=== PATIENT | female | born 1985 | race Caucasian/White ===

== ENCOUNTER 2017-06-26 18:42 | Emergency (ER) | payer OTHER, SELFPAY ==
[2017-06-26 18:43] VITALS: BP 137/67; PULSE 84; RESP 16; TEMP 36.8; O2SAT 98; BMI 25.5
--- NOTE | 2017-06-26 19:30 | ED.DCSUM_ITS ---
- ER Visit Summary Date of Service: 06/26/17 Chief Complaint: [Redness and swelling to left elbow] History of Present Illness: The patient is a 31 F [presents the emergency department with redness and swelling to her left elbow that started yesterday. Patient was seen at the urgent care today and started on Bactrim 2 tablets twice a day. Patient apparently received a phone call asking her to come to the emergency department to make sure that she was not septic. Patient denies any fevers. Patient denies any trauma to the elbow although she states she had been painting several days ago.] Physical Examination: [Left elbow-patient has some tenderness over the olecranon bursa with some mild fluctuance noted. There is an area of erythema that has been outlined with permanent marker from her visit to the urgent care in the ER erythema does not extend beyond the line of demarcation. Patient nervously intact distally. Patient has relatively painless range of motion in flexion extension at the elbow. I do not feel the patient has a septic joint. She is nervously intact distally.] Test Results: None indicated [] Emergency Department Course and Treatment: [I will add Keflex to her antibiotic regimen and first dose was given in the emergency department.] Treatment Plan: [We will start patient on Keflex and advised to continue with the Bactrim] Disposition: Discharged to home in stable condition. Patient tries to return if worsening pain, redness, swelling, or condition should worsen in any way. [] Impression: [Olecranon bursitis with cellulitis] This note was generated with [employer] dictation software. It may contain incorrect words, spelling, and punctuation that were not noted in review of the chart prior to signing ED Disposition - Plan for ED Patient: Chief Complaint: Upper Extremity Injury Referrals: Care Physician,No Primary [Primary Care Provider] -
--- NOTE | 2017-06-26 19:31 | ED.DEP ---
ED Disposition - Plan for ED Patient: Chief Complaint: Upper Extremity Injury Instructions: ED Bursitis Elbow Olecranon Prescriptions: Cephalexin [Keflex] 500 mg PO Q6 #40 cap Referrals: Care Physician,No Primary [Primary Care Provider] - Baldemar Jackson DO [STAFF PHYSICIAN] - 3-5 Days
[2017-06-26] MEDS: Cephalexin 250 MG Capsule 500 MG PO (20:00)
[2017-06-26 20:04] VITALS: PULSE 87; RESP 14; O2SAT 95
== END 2017-06-26 20:05 | disposition home or self-care (01) ==
LOC: ED 19:43
PROVIDERS: Emergency Provider Emergency Medicine
DX: M70.22 Olecranon bursitis, left elbow (principal); L03.114 Cellulitis of left upper limb; Z72.0 Tobacco use
CPT/HCPCS: 99283

== ENCOUNTER 2017-12-08 11:19 | Emergency (ER) | payer OTHER, SELFPAY ==
[2017-12-08 11:20] VITALS: BP 119/81; PULSE 74; RESP 14; TEMP 37; O2SAT 98; BMI 25.2
--- NOTE | 2017-12-08 11:35 | ED.VISSUMM ---
- ER Visit Summary Date of Service: 12/08/17 Chief Complaint: Foot laceration History of Present Illness: The patient is a 32 F who was walking to the garage when she kicked a saw. She caused laceration to the dorsum of the left foot between the third and fourth toe. Tetanus is not up-to-date. Physical Examination: There is a 1.5 cm full-thickness laceration on the dorsum of the left foot in between the third and fourth digits. No active bleeding. Neurovascular intact distally. Emergency Department Course and Treatment: Wound was locally anesthetized using 1% lidocaine. Washed with Shur-Clens and explored. Wound was closed using #2 4-0 simple interrupted Ethilon sutures. Tetanus was updated with Adacel. Stitches will need to be removed 10-14 days. Patient was advised of local wound care. Impression: 1. 1.5 cm left foot laceration with repair 2. Tetanus update This note was generated with [employer] dictation software. It may contain incorrect words, spelling, and punctuation that were not noted in review of the chart prior to signing ED Disposition - Plan for ED Patient: Disposition: Home or Assisted Living Chief Complaint: Laceration Instructions: ED Laceration Foot Referrals: Gordon Hooper MD [STAFF PHYSICIAN] - 10-14 Days suture removal
[2017-12-08] MEDS: Diphth,Pertuss(Acell),Tet Vac 0.5 ML Vial IM (12:36)
== END 2017-12-08 12:50 | disposition home or self-care (01) ==
LOC: ED 12:25
PROVIDERS: Emergency Provider Emergency Medicine
DX: S91.312A Laceration without foreign body, left foot, initial encounter (principal); W29.3XXA Contact with powered garden and outdoor hand tools and machinery, initial encounter; Y93.9 Activity, unspecified; Y92.015 Private garage of single-family (private) house as the place of occurrence of the external cause; Y99.9 Unspecified external cause status; Z23 Encounter for immunization
CPT/HCPCS: 12001; 90715; 99283

== ENCOUNTER 2019-01-14 17:57 | Emergency (ER) | payer OTHER, SELFPAY ==
[2019-01-14 17:57] VITALS: BMI 25.5
[2019-01-14 17:58] VITALS: BP 125/78; BP 137/83; PULSE 74; PULSE 87; RESP 18; TEMP 36.8; O2SAT 98; BMI 25.9
--- NOTE | 2019-01-14 18:00 | ED.VISSUMM ---
- ER Visit Summary Date of Service: 01/14/19 Chief Complaint: Allergic reaction History of Present Illness: The patient is a 33 F who is currently having an allergic reaction. She ate a fruit snack with peaches in it. The patient has an allergy to peaches. She did not know this and ate this snack. She started having shortness of breath. She feels like she cannot swallow her secretions. Denies any tongue swelling. She does not have an EpiPen at home. She did this about 5 minutes ago. She took no medications for this at home. Physical Examination: Vital signs reviewed. HEENT exam reveals the patient is handling her secretions orally. There is no tongue swelling. Heart is regular rate and rhythm without murmurs. Lungs have inspiratory and expiratory wheezing throughout. Abdomen soft nontender. Extremities reveal no edema. Skin has no urticaria. Her neurologic exam is normal. Test Results: None performed Emergency Department Course and Treatment: Patient was given an EpiPen dose upon her arrival. After this she was feeling much better. She was observed for over 2 hours with no return of symptoms. She feels back to normal. I will give her a prescription for an EpiPen at home. She will follow-up with her PCP. She was educated to stay away from peaches Treatment Plan: [] Disposition: Discharge Impression: Allergic reaction to food This note was generated with [employer] dictation software. It may contain incorrect words, spelling, and punctuation that were not noted in review of the chart prior to signing ED Disposition - Plan for ED Patient: Referrals: Care Physician,No Primary [Primary Care Provider] -
[2019-01-14 19:00] VITALS: BP 110/65; PULSE 64; RESP 19; O2SAT 98
--- NOTE | 2019-01-14 20:18 | ED.DEP ---
ED Disposition - Plan for ED Patient: Disposition: Home or Assisted Living Instructions: ALLERGIC REACTION, Other (General) Prescriptions: Epinephrine [Epipen] 0.3 mg IJ PRN PRN #1 auto.injct PRN Reason: Anaphylaxis Prescription Printed Referrals: Care Physician,No Primary [Primary Care Provider] -
[2019-01-14 20:24] VITALS: BP 108/65; PULSE 68; RESP 20; O2SAT 94
== END 2019-01-14 20:25 | disposition home or self-care (01) ==
PROVIDERS: Emergency Provider Emergency Medicine
DX: T78.1XXA Other adverse food reactions, not elsewhere classified, initial encounter (principal); R06.02 Shortness of breath
CPT/HCPCS: 99283; A4216

== ENCOUNTER 2020-09-01 14:31 | Outpatient (RCR) | payer OTHER, SELFPAY | END 2020-10-25 23:59 | LOC: IMMUN 14:31 | PROVIDERS: Visit Provider Family Medicine | DX: Z23 Encounter for immunization (principal) | CPT/HCPCS: 0001A; 0002A; 91300 ==

== ENCOUNTER 2025-03-22 04:19 | Emergency (ER) | payer BC, SELFPAY ==
[2025-03-22 04:20] VITALS: BP 101/57; PULSE 74; RESP 16; TEMP 36.4; O2SAT 100; BMI 24.3
--- NOTE | 2025-03-22 05:04 | RAD_ITS ---
PROCEDURE: RAD/Abd Inc Decub and/or Erect
--- NOTE | 2025-03-22 06:09 | US_ITS ---
PROCEDURE: US/Transvaginal Non-
--- NOTE | 2025-03-22 06:41 | EX.ED.DYSGE1 ---
HPI History of Present Illness Chief Complaint: Other, Pain/Inj Informant: patient Narrative Narrative: Patient is a 39-year-old female with no significant past medical history. She states that she had an IUD for approximately 8 years and after recent end of his life cycle it was removed. She states on she saw her [facility] and had a repeat IUD placed. She states since its insertion she has been having pelvic pain and cramping and states it feels like she is constantly having contractions. She states that there has been no significant bleeding or discharge or dysuria. She denies any fevers or chills. However with concern that the IUD is not in the proper position she presents for evaluation [facility] Medical History (Updated 03/22/25 @ 06:[address] Shane Davila, DO) Tear of lateral meniscus of right knee Osteoarthritis of right knee Right knee pain Home Medications ?Medication ?Instructions ?Recorded ?Last Taken ?Type epinephrine 0.3 mg/0.3 mL 0.3 mg (0.3 mL) IJ PRN PRN 01/14/19 Unknown Rx injection, auto-injector Anaphylaxis ##1 ibuprofen 800 mg tablet 800 mg PO TID 02/13/24 Unknown History levonorgestrel (Mirena) 1 device intrauterine ONCE 02/13/24 Unknown History phentermine 37.5 mg capsule 37.5 mg PO QAM 02/13/24 Unknown History Allergy/AdvReac Type Severity Reaction Status Date / Time peach Allergy Anaphylaxis Verified 03/22/25 04:19 Family History Other Asthma Cancer Surgical History Status post reconstruction of anterior cruciate ligament Hx of removal of cyst Hx of appendectomy Hx of anterior cruciate ligament surgery Social History household members: spouse Smoking Status: Former smoker alcohol intake: never ROS ROS ED Constitutional Constitutional ED: Denies chills or fever(s) ENT ENT ED: Reports sore throat Cardiovascular Cardiovascular: Denies chest pain Respiratory/Chest Respiratory/Chest: Denies cough or dyspnea Gastrointestinal Gastrointestinal: Reports abdominal pain; Denies diarrhea, nausea or vomiting Genitourinary Genitourinary ED: Reports other Details: Positive pelvic pain ; Denies dysuria or hematuria Musculoskeletal Musculoskeletal: Denies myalgias Integumentary Denies rash Neurologic Neurologic: Denies headache(s) Hematologic/Lymphatic Hematologic/Lymphatic: Denies easy bleeding or easy bruising EXAM Physical Exam Const Vital Signs: 03/22/25 04:20 03/22/25 04:20 Temperature 97.6 F L Temperature Source Oral Pulse Rate 74 Respiratory Rate 16 Respiratory Pattern Normal Blood Pressure 101/57 L Blood Pressure Mean 71 Pulse Ox 100 Oxygen Delivery Method Room Air Positive well nourished and well developed General Appearance ED: well developed; Negative for pallor HEENT HEENT Narrative: Normocephalic atraumatic Eyes PERRL and EOMs intact bilaterally General Eye ED: Negative for scleral icterus Neck supple Resp normal respiratory effort and clear to auscultation bilaterally Cardio regular rate and regular rhythm Rate: other Other Details: Radial and carotid pulses are equal and symmetric GI non-distended and no masses GI Narrative: Abdomen is soft and nondistended with normal active bowel sounds Patient has pain with palpation in the suprapubic and left lower quadrant region No voluntary guarding or rigidity. No pulsatile mass No peritoneal signs Auscultation: normoactive bowel sounds Palpation: soft Narrative: External genitalia is normal Speculum exam reveals no dried blood or active bleeding. Scant amount of discharge is noted. No findings of IUD migration through the cervix. Back/Spine no CVA tenderness Extremity normal to inspection Neuro oriented x3, CN's II-XII intact bilaterally and no sensory deficits noted Sensorium / Orientation: alert Motor Exam: strength 5/5 throughout Psych mental status grossly normal Skin no rashes or lesions noted and no wounds General Skin Exam: Negative for jaundice or pallor MDM MDM MDM Narrative Medical decision making narrative: Patient presented to the ER with stable vitals. She reported that ever since her new IUD had been inserted she has had abdominal/pelvic cramping and pain. She denies any significant bleeding or discharge or dysuria. Therefore my concern for STD or UTI is low. I do feel that there is potential for IUD migration or uterine perforation and therefore I performed an acute abdominal series. This showed the IUD to be in proper position without free air to suggest perforation. On my pelvic exam there is no obvious findings of cervical laceration or dislodgment of the IUD either. I did discuss the case with [facility] on-call Dr. Hurtado. She recommends a ultrasound to confirm placement. Therefore that was ordered as well. It showed the IUD was in the fundus which is the proper position. Therefore at this time as workup reveals no sign of cervical laceration or secondary infection or uterine perforation or displacement of the IUD there is no need for further intervention. The patient will be able to follow-up with her [facility] later today but without emergent need for specialist intervention she is otherwise safe for discharge History & Record Review Discussion w/independent historian: Patient Radiography Diagnostic Testing: Clinical Impression(s) from Imaging Studies Abdomen X-Ray 03/22/25 05:04 IMPRESSION: IUD in the mid pelvis. Reading Location: [facility] Transvaginal US 03/22/25 06:09 IMPRESSION: IUD seen within the fundal portion of the endometrium. 2 cm x 2.9 cm 1.8 cm right ovarian cyst. Reading Location: [id number] Acute abdominal series as interpreted by the emergency medicine physician reveals IUD to be in proper position without obvious signs of perforation Management Discussion w/another healthcare provider: Human Resources Hr Representative Discharge Plan Triage Chief Complaint: Other, Pain/Inj ED Provider: Shane Davila Dx/Rx/DC Orders Clinical Impression: Pelvic pain Instructions: IUD Prescriptions: No Action ibuprofen 800 mg tablet 800 mg PO TID phentermine 37.5 mg capsule 37.5 mg PO QAM Mirena 21 mcg/24hr (up to 8 yrs) 52 mg intrauterine device 1 device intrauterine ONCE Rx Instructions: as a single dose epinephrine 0.3 MG/0.3 ML auto-injector 0.3 mg IJ PRN PRN (Reason: Anaphylaxis) Qty: 1 0RF Primary Care Provider: Becky Chandler BOARD CATCHER Referrals: Becky Chandler BOARD CATCHER, BOARD C[facility]-C [Primary Care Provider, Medical] Sara Abdul BOARD CATCHER, BOARD CATCHER-C [Non-Staff, Gynecology] Activity Restrictions/Additional Instructions: Please call your [facility] office today after 8 AM. They should be able to work you in for further evaluation later today. At this time the x-ray, pelvic exam, and ultrasound do not show dislodgment/migration of your IUD or obvious cause for your pelvic symptoms. Please return to the ER should you have any further concerns Print Language: Ukrainian Disposition Disposition: Home, Self Care
[2025-03-22 07:41] VITALS: BP 106/65; PULSE 63; RESP 18; TEMP 36.9; O2SAT 97
== END 2025-03-22 07:41 | disposition home or self-care (01) ==
PROVIDERS: Emergency Provider Emergency Medicine; PCP Nurse Practitioner; Visit Provider Emergency Medicine
DX: R10.20 Pelvic and perineal pain unspecified side (principal); Z87.891 Personal history of nicotine dependence; Z97.5 Presence of (intrauterine) contraceptive device
CPT/HCPCS: 74019; 76830; 99282